=== PATIENT | male | born 1985 | race Caucasian/White ===

== ENCOUNTER 2019-12-17 11:57 | Emergency (ER) | payer SELFPAY ==
[~2019-12-17] VITALS: Ht 172.7 cm; Wt 81.6 kg
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
--- NOTE | 2019-12-17 12:30 | NUR ---
KEPT FINGER COVERED WITH DRY DRESSING TO REDUCE THE BLEEDING.
[2019-12-17] MEDS ORDERED: LIDOCAINE /MPF 1% VIAL 5 ML VIAL ONE (14:33)
--- NOTE | 2019-12-17 15:00 | NUR ---
dr. cheng at bedside for lac repair
[2019-12-17] MEDS ORDERED: CEPHALEXIN MONOHYDRATE 500 MG CAPSULE PO ONE ×2 (15:54→16:00)
--- NOTE | 2019-12-17 16:10 | NUR ---
PATIENT'S RIGHT 3RD AND 4TH FINGER LAC REPAIR DONE. COVERED WITH NON-ADHESIVE DRY DRESSING AND SPLINT. Patient discharged to home in stable condition. Written and verbal after care instructions given. Patient verbalizes understanding of instruction.
[2019-12-17 16:12] VITALS: BP 146/90
== END 2019-12-17 16:12 | disposition home or self-care (01) ==
LOC: ER 11:57
DX: S62.634A Displaced fracture of distal phalanx of right ring finger, initial encounter for closed fracture (principal); S61.212A Laceration without foreign body of right middle finger without damage to nail, initial encounter; W20.8XXA Other cause of strike by thrown, projected or falling object, initial encounter; Y93.89 Activity, other specified; Y92.89 Other specified places as the place of occurrence of the external cause; Y99.8 Other external cause status
CPT/HCPCS: 11730; 12002; 29130; 73130; 99284; A6403; J3490